=== PATIENT | female | born 1975 | race Caucasian/White ===

== ENCOUNTER 2020-11-23 09:00 | Emergency (ER) | payer OTHER, SELFPAY ==
[2020-11-23 09:00] VITALS: BP 137/78; PULSE 82; RESP 18; TEMP 36.6; O2SAT 98; BMI 27.8
--- NOTE | 2020-11-23 09:14 | XR_ITS ---
PROCEDURE INFORMATION: Exam: XR Right Foot Exam date and time: 11/23/2020 9:14 AM Age: 45 years old Clinical indication: Pain; Right; Patient HX: Dropped pallet on foot; Additional info: [place] injury TECHNIQUE: Imaging protocol: XR Right foot. Views: 3 or more views. COMPARISON: No relevant prior studies available. FINDINGS: Bones/joints: There is no evidence of acute fracture.There is no evidence of malalignment or dislocation. Soft tissues: Normal. IMPRESSION: There is no evidence of acute fracture.There is no evidence of malalignment or dislocation.
--- NOTE | 2020-11-23 09:29 | HMH.EDUTC ---
[facility] [place] Clinical Impression: Foot contusion Qualifiers: Encounter type: initial encounter Laterality: right Qualified Code(s): S90.31XA - Contusion of right foot, initial encounter Disposition: Home, Self-Care Condition on Discharge: Good Instructions: How To Perform RICE (Rest, Ice, Compress, Elevate) Additional Instructions: *weight bearing as tolerated *RICE, Rest the extremity, Ice 15-20 minutes 3-4 times daily, Compress- wear the bill wrap as discussed as much as possible to help reduce swelling and pain, Elevate the extremity when at rest *Bill wrap is for support and help control swelling, use it except in the shower. Be sure that is not to tight but not to loose either *Elevate when resting *Ibuprofen 600-800mg every 6-8 hours as needed for pain an inflammation. If need something more can take Tylenol in between doses of Ibuprofen to help Immediately follow up with your family doctor for new or worsening of symptoms, or no noticeable improvement over the next 3-5 days Call back to the [facility] later today for the official reading of your xray Follow up with Family Doctor or Podiatry if needed Referrals: Provider,Referral, MD [Primary Care Provider] - As needed Nella Renee DPM [Staff Physician] - Time of Disposition: 09:58 Medical Decision Making - Jorge Inquiry Pt receiving controlled substance: No Jorge was queried for this patient: No Vital Signs: 11/23/20 09:00 11/23/20 10:11 Temperature 97.8 F 97.8 F Temperature Source Oral Pulse Rate 82 Pulse Rate [Right Brachial] 82 Respiratory Rate 18 18 Blood Pressure 137/78 Blood Pressure [Right Arm] 137/78 Blood Pressure Mean [Right Arm] 97 Blood Pressure Source [Right Arm] Automatic Cuff Blood Pressure Position [Right Arm] Sitting 02 Sat by Pulse Oximetry 98 Oxygen Delivery Method Room Air - Radiology Data #1 Image(s): Foot/Toes Image Reviewed: Yes I reviewed the patient's radiology image Preliminary Findings: No Fracture Seen [facility] [place]PI - General Stated complaint: [id number] right foot injury Time Seen by Provider: 11/23/20 09:30 Mode of Arrival: Ambulatory Source of Information: Patient Limitations: No Limitations Description of Symptoms (Recalled from Triage Doc. by RN): PATIENT C/O RIGHT FOOT PAIN AFTER DROPPING A WOODEN PALLET ON IT AT WORK LAST NIGHT HEENT Symptoms (Recalled from RN notes): No Resp Symptoms (Recalled from RN notes): No Skin Symptoms (Recalled from RN notes): No MS Symptoms (Recalled from RN notes): Yes Functional Status (Recalled from RN notes): WNL - History of Present Illness Provider Complaint: Patient states that she was at work last night when she accidently dropped a wooden pallet on the top of her right foot State that she continued working and walking on it but this morning she was having some pain and swelling and hurt when she would try to bend her toes in the top of foot. - Related Data Home Medications Medication Instructions Recorded Confirmed No Known Home Medications 11/23/20 11/23/20 Allergies Allergy/AdvReac Type Severity Reaction Status Date / Time No Known Allergies Allergy Verified 11/23/20 09:24 - Worker's Comp Is this a Worker's Comp case?: Yes [facility] History - Hepatitis A Screen Drug use history?: No High risk sexual behaviors?: No History of sexually transmitted infection?: No Currently employed?: No Childcare worker?: No Do you have indoor plumbing?: Yes Do you have electricity?: Yes Attestation statement:: This patient has been screened for Hepatitis A risk factors. I have reviewed the patient's past medical history: Yes Laterality Cases: Bilateral: Myringotomy (Ear Tubes), Tonsillectomy - Social History Alcohol Intake: never Occupational Status: other ROS Obtained: Yes All systems reviewed & no additional complaints, Yes Systems reviewed as appropriate & no additional complaints - Constitutional Constitutional: Reports system reviewed and
[2020-11-23 10:11] VITALS: BP 137/78; PULSE 82; RESP 18; TEMP 36.6; O2SAT 98
== END 2020-11-23 10:15 | disposition home or self-care (01) ==
PROVIDERS: Emergency Provider Nurse Practitioner
DX: S90.31XA Contusion of right foot, initial encounter (principal); W22.8XXA Striking against or struck by other objects, initial encounter; Y92.69 Other specified industrial and construction area as the place of occurrence of the external cause; Y99.0 Civilian activity done for income or pay
CPT/HCPCS: 73630; 99202; G0463

== ENCOUNTER 2021-03-21 14:44 | Emergency (ER) | payer OTHER, SELFPAY ==
[2021-03-21 14:45] VITALS: BP 121/73; PULSE 72; RESP 18; TEMP 36.6; O2SAT 98; BMI 27.3
--- NOTE | 2021-03-21 14:47 | HMH.EDUTC ---
[facility] [place] Disposition Clinical Impression: Low back pain Qualifiers: Chronicity: acute Back pain laterality: bilateral Sciatica presence: with sciatica Sciatica laterality: sciatica of left side Qualified Code(s): M54.42 - Lumbago with sciatica, left side Lumbar strain Qualifiers: Encounter type: initial encounter Qualified Code(s): S39.012A - Strain of muscle, fascia and tendon of lower back, initial encounter Disposition: Home, Self-Care Condition on Discharge: Good Instructions: Low Back Pain, DI for Low Back Pain, Lumbar Radiculopathy, DI for Lumbar Radiculopathy Additional Instructions: Go home and rest. It would be best if you rested tomorrow too. No heavy lifting. No twisting. Take the oral medications as directed. The muscle relaxer (cyclobenzaprine--Flexeril) will make you drowsy, so don't drive or operate heavy machinery after taking it. Don't start the oral steroids (medrol dose pack) until tomorrow, since you had the shots in here today. Applying heat to your lower back might help at this point. If you have a heating pad, use it on a low setting, but be careful and do not burn yourself with it. Follow up with your regular doctor. GO TO THE ER FOR ANY WORSENING SYMPTOMS OR CONCERN, ESPECIALLY BOWEL OR BLADDER ISSUES, SADDLE AREA NUMBNESS, FEVER, ETC Prescriptions: Cyclobenzaprine HCl [Cyclobenzaprine 10mg Tab] 10 mg PO BIDP PRN #20 tab PRN Reason: Muscle Spasm Transmission Status: Received by [email or web address] methylPREDNISolone [Medrol] 4 mg PO DIRECTED 6 Days #21 packet Transmission Status: Received by [facility] Referrals: Provider,Referral, [Primary Care Provider] - Forms: Work/School Release Time of Disposition: 16:00 Medical Decision Making - Medical Records Medical records reviewed: No: I reviewed the patient's medical records. - Jorge Inquiry Pt receiving controlled substance: No Vital Signs: 03/21/21 14:45 03/21/21 15:59 Temperature 97.8 F 97.8 F Temperature Source Oral Pulse Rate 72 Pulse Rate [Right Brachial] 72 Respiratory Rate 18 18 Blood Pressure 121/73 Blood Pressure [Right Arm] 121/73 Blood Pressure Mean [Right Arm] 89 Blood Pressure Source [Right Arm] Automatic Cuff Blood Pressure Position [Right Arm] Sitting 02 Sat by Pulse Oximetry 98 Oxygen Delivery Method Room Air Orders (Tests/Meds): ED MEDICATIONS Discontinued Medications Generic Name Dose Route Start Last Admin Trade Name Batsheva PRN Reason Stop Dose Admin Ketorolac Tromethamine 60 mg 03/21/21 15:52 03/21/21 15:59 Ketorolac 60mg/2ml Vial IM 03/21/21 15:53 60 mg ONCE ONE Administration Methylprednisolone Sodium Succinate 125 mg 03/21/21 15:52 03/21/21 15:59 Methylprednisolone Sod Succ 125mg Vial IM 03/21/21 15:53 125 mg ONCE ONE Administration - Radiology Data #1 Image(s): L-Spine Image Reviewed: Yes I reviewed the patient's radiology image, Yes I have reviewed radiologist's interpretation Preliminary Findings: Normal/NAD, No Fracture Seen PROCEDURE: XR LUMBAR SPINE 2-3V CLINICAL INDICATION: PAIN TO LEFT LOWER BACK/WC COMPARISON: No exams were available for comparison FINDINGS: There is normal curvature and alignment. All lumbar vertebrae appear intact and disc spaces are well maintained throughout. The SI joints appear normal. IMPRESSION: Normal lumbar spine Dictated by: Dr. Wesley Buchanan MD 03/21/2021 15:27 Dr. Wesley Buchanan MD in [place] 03/21/2021 15:27 [facility] [place] HPI - General Stated complaint: Low back pain W/C 03/18/21 1200 Time Seen by Provider: 03/21/21 15:44 - History of Present Illness Provider Complaint: She states that 3 days ago she was lifting 5 gallon buckets at job at [employer] when she felt something pull in her lower back. She began having low back pain that radiated up to her neck and shoulders and down to her left hip. Since then, her pain has got worse. She has been unable to sleep at
--- NOTE | 2021-03-21 15:06 | XR_ITS ---
PROCEDURE: XR LUMBAR SPINE 2-3V CLINICAL INDICATION: PAIN TO LEFT LOWER BACK/WC COMPARISON: No exams were available for comparison FINDINGS: There is normal curvature and alignment. All lumbar vertebrae appear intact and disc spaces are well maintained throughout. The SI joints appear normal. IMPRESSION: Normal lumbar spine Dictated by: Dr. Wesley Buchanan MD 03/21/2021 15:27 Dr. Wesley Buchanan MD in [place] 03/21/2021 15:27
[2021-03-21 15:59] VITALS: BP 121/73; PULSE 72; RESP 18; TEMP 36.6; O2SAT 98
== END 2021-03-21 16:17 | disposition home or self-care (01) ==
PROVIDERS: Emergency Provider Nurse Practitioner Family
DX: M54.42 Lumbago with sciatica, left side (principal); X50.0XXA Overexertion from strenuous movement or load, initial encounter; S39.012A Strain of muscle, fascia and tendon of lower back, initial encounter; Y99.0 Civilian activity done for income or pay; Y92.513 Shop (commercial) as the place of occurrence of the external cause
CPT/HCPCS: 72100; 96372; 99202; G0463

== ENCOUNTER 2021-06-19 09:30 | Emergency (ER) | payer BC, SELFPAY ==
[2021-06-19 10:08] VITALS: BP 114/80; PULSE 106; RESP 18; TEMP 37; O2SAT 99; BMI 28.8
[2021-06-19 10:25] LABS: Apearance,Urine Turbid (Clear); Bilirubin,Urine Negative (Negative); Blood, Urine 2+ (Negative); Color,Urine Yellow (Yellow); Glucose,Urine (UA) Negative (Negative); Ketones,Urine Negative (Negative); Protein,Urine 2+ (Negative); Specific Gravity, Urine > 1.030 (1.005-1.030); Urobilinogen,Urine 0.2 EU/dl (0.2)
[2021-06-19 10:26] LABS: UTC Leukocyte Esterase,Urine 3+ (Negative); UTC Nitrate,Urine Negative (Negative)
--- NOTE | 2021-06-19 10:57 | HMH.EDUTC ---
[facility] [place] Disposition Clinical Impression: UTI (urinary tract infection) Qualifiers: Urinary tract infection type: site unspecified Hematuria presence: with hematuria Qualified Code(s): N39.0 - Urinary tract infection, site not specified Disposition: Home, Self-Care Condition on Discharge: Good Instructions: DI for Urinary Tract Infection (UTI), Phenazopyridine Additional Instructions: Drink plenty of fluids. Take tylenol or ibuprofen for pain or fever. Take the medications as directed. Follow up with your regular doctor. GO TO THE ER FOR ANY WORSENING SYMPTOMS The pyridium will make your urine turn orange, this is an expected side effect. It will stain your clothes if it comes into contact with them. Prescriptions: Ondansetron [Zofran 4mg ODT] 4 mg PO Q8HP PRN #20 tab PRN Reason: Nausea Transmission Status: Received by [facility] Sulfamethoxazole/Trimethoprim [Bactrim DS tablet] 1 each PO BID 7 Days #14 tab Transmission Status: Received by [facility] Phenazopyridine HCl [Pyridium 200mg Tablet] 200 pow PO TID #6 tab Transmission Status: Received by [facility] Referrals: Provider,Referral, [Primary Care Provider] - Forms: Work/School Release Time of Disposition: 11:06 Medical Decision Making - Medical Records Medical records reviewed: No: I reviewed the patient's medical records. - Jorge Inquiry Pt receiving controlled substance: No Vital Signs: 06/19/21 10:08 06/19/21 11:10 Temperature 98.6 F 98.6 F Temperature Source Oral Pulse Rate 106 H Pulse Rate [Left] 106 H Respiratory Rate 18 18 Blood Pressure 114/80 Blood Pressure [Right Arm] 114/80 Blood Pressure Mean [Right Arm] 91 02 Sat by Pulse Oximetry 99 - Lab Data Lab results reviewed: Yes: I reviewed the patient's lab results. Lab Results 06/19/21 10:14: Urine Color Yellow, Urine Appearance Turbid, Urine pH 6.0, Ur Specific [place] > 1.030 H, Urine Protein 2+, Urine Glucose (UA) Negative, Urine Ketones Negative, Urine Blood 2+, Urine Nitrate Negative, Urine Bilirubin Negative, Urine Urobilinogen 0.2, Ur Leukocyte Esterase 3+ A Orders (Tests/Meds): ORDERS Category Date Time Status Urine Culture Stat Micro 06/19/21 10:14 Received [facility] [place] HPI - General Stated complaint: possible uti Time Seen by Provider: 06/19/21 10:57 Mode of Arrival: Ambulatory Source of Information: Patient Limitations: No Limitations Description of Symptoms (Recalled from Triage Doc. by RN): pt c/o burning with urination x3 days. HEENT Symptoms (Recalled from RN notes): No Resp Symptoms (Recalled from RN notes): No Skin Symptoms (Recalled from RN notes): No MS Symptoms (Recalled from RN notes): No Functional Status (Recalled from RN notes): wnl - History of Present Illness Provider Complaint: She states that for the past 2 days she has had worsening dysuria, urinary frequency, low back pain and malaise. She believes she has a uti. She does not get uti's frequently, but she has had them in the past and she felt like she does now. - Related Data Previous Rx's Medication Instructions Recorded Cyclobenzaprine HCl 10 mg PO BIDP PRN #20 tab 03/21/21 [Cyclobenzaprine 10mg Tab] methylPREDNISolone [Medrol] 4 mg PO DIRECTED 6 Days #21 03/21/21 packet Ondansetron [Zofran 4mg ODT] 4 mg PO Q8HP PRN #20 tab 06/19/21 Phenazopyridine HCl [Pyridium 200 pow PO TID #6 tab 06/19/21 200mg Tablet] Sulfamethoxazole/Trimethoprim 1 each PO BID 7 Days #14 tab 06/19/21 [Bactrim DS tablet] Allergies Allergy/AdvReac Type Severity Reaction Status Date / Time No Known Allergies Allergy Verified 11/23/20 09:24 - Worker's Comp Is this a Worker's Comp case?: No [facility] History - Hepatitis A Screen Drug use history?: No High risk sexual behaviors?: No History of sexually transmitted infection?: No Currently employed?: No Childcare worker?: No Do you have indoor plumbing?: Yes D
[2021-06-19 11:10] VITALS: BP 114/80; PULSE 106; RESP 18; TEMP 37
== END 2021-06-19 11:15 | disposition home or self-care (01) ==
PROVIDERS: Emergency Provider Nurse Practitioner Family
DX: N39.0 Urinary tract infection, site not specified (principal); R31.9 Hematuria, unspecified; Z87.440 Personal history of urinary (tract) infections
CPT/HCPCS: 81003; 87086; 99202; G0463